=== PATIENT | male | born 1965 | race Caucasian/White ===

== ENCOUNTER 2017-03-24 15:53 | Emergency (ER) | payer SELFPAY ==
[2017-03-24 15:57] VITALS: PULSE 98; RESP 16; TEMP 98.6; O2SAT 98
[2017-03-24 17:33] VITALS: BP 154/98
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
== END 2017-03-24 17:30 | disposition home or self-care (01) ==
LOC: H.ER 15:53
DX: T59.91XA Toxic effect of unspecified gases, fumes and vapors, accidental (unintentional), initial encounter (principal)